=== PATIENT | female | born 1985 | race African-American/Black ===

== ENCOUNTER 2018-04-14 06:51 | Emergency (ER) | payer OTHER ==
[~2018-04-14] VITALS: Ht 160 cm; Wt 82.0 kg
[2018-04-14 07:57] LABS: HEMATOCRIT. 37.7 % (36.0-48.0); HEMOGLOBIN. 12.7 g/dL (12.0-16.0); MEAN CORPUSCULAR HEMOGLOBIN 30.4 pg (28.0-32.0); MEAN CORPUSCULAR VOLUME 90.3 fL (81.0-99.0); MEAN PLATELET VOLUME 8.3 fl (7.4-10.4); PLATELET 337 x1000/uL (130-400); RED BLOOD CELL COUNT 4.17 mill/uL (4.2-5.4); RED CELL DISTRIBUTION WIDTH 13.1 % (11.6-14.6)
[2018-04-14 08:01] LABS: COLOR URINE YELLOW (YELLOW); KETONES URINE NEGATIVE (NEGATIVE); LEUKOCYTE ESTERASE URINE NEGATIVE (NEGATIVE); NITRITE URINE NEGATIVE (NEGATIVE); OCCULT BLOOD URINE NEGATIVE (NEGATIVE); PH URINE 5.5 (4.5-8.0); PROTEIN URINE NEGATIVE (NEGATIVE); SPECIFIC GRAVITY URINE 1.027 (1.005-1.030)
[2018-04-14 08:02] LABS: CLARITY URINE HAZY (CLEAR)
[2018-04-14 08:03] LABS: CHLORIDE 106 mEq/L (98-107)
[2018-04-14 08:09] LABS: HCG SCREEN NEGATIVE
[2018-04-14 08:23] LABS: PLATELET ESTIMATE NORMAL
[2018-04-14 11:29] VITALS: BP 116/58
== END 2018-04-14 11:42 | disposition home or self-care (01) ==
LOC: ER 06:51
DX: R10.2 Pelvic and perineal pain (principal); D25.9 Leiomyoma of uterus, unspecified; J45.909 Unspecified asthma, uncomplicated; F17.200 Nicotine dependence, unspecified, uncomplicated
CPT/HCPCS: 36415; 74176; 76830; 76856; 81025; 84703; 87210; 99284

== ENCOUNTER 2018-06-03 20:30 | Emergency (ER) | payer OTHER ==
[~2018-06-03] VITALS: Ht 160 cm; Wt 85.0 kg
[2018-06-03 21:00] VITALS: BP 99/72
== END 2018-06-04 03:52 | disposition left against medical advice (07) ==
LOC: ER 20:30
DX: Z53.21 Procedure and treatment not carried out due to patient leaving prior to being seen by health care provider (principal)

== ENCOUNTER 2018-08-29 09:01 | Emergency (ER) | payer OTHER ==
[~2018-08-29] VITALS: Ht 160 cm; Wt 81.0 kg
[2018-08-29] MEDS ORDERED: IBUPROFEN 800MG TABLET PO ONE (09:45)
[2018-08-29 13:21] VITALS: BP 112/62
== END 2018-08-29 13:22 | disposition home or self-care (01) ==
LOC: ER 09:01
DX: S63.592A Other specified sprain of left wrist, initial encounter (principal); M25.462 Effusion, left knee; J45.909 Unspecified asthma, uncomplicated; W18.39XA Other fall on same level, initial encounter; Y93.89 Activity, other specified; Y92.89 Other specified places as the place of occurrence of the external cause; Y99.8 Other external cause status
CPT/HCPCS: 29125; 73110; 73562; 81025; 93971; 99284

== ENCOUNTER 2021-03-18 15:24 | Emergency (ER) | payer BC, OTHER ==
[~2021-03-18] VITALS: Ht 162.6 cm; Wt 80.0 kg
[2021-03-18] MEDS ORDERED: LIDOCAINE HCL/PF 1% 10 MG/ML 5ML VIAL INFIL ONE ×2 (15:30→15:45)
[2021-03-18] MEDS ORDERED: TETANUS, DIPHTHERIA, PERTUSSIS VAC/PF 0.5ML (>10YR OLD) IM ONE (15:30)
[2021-03-18] MEDS ORDERED: BACITRACIN ZINC OINT UDPKT TOP ONE (15:30)
[2021-03-18] MEDS ORDERED: IBUPROFEN 600MG TABLET PO ONE (15:30)
[2021-03-18] MEDS ORDERED: CETI-89 PO (15:33)
[2021-03-18] MEDS ORDERED: MONT4GRA2 PO (15:33)
[2021-03-18] MEDS ORDERED: ALBU4TAB6 PO (15:33)
[2021-03-18] MEDS ORDERED: BO1 TP (15:34)
[2021-03-18] MEDS ORDERED: IBUP-2029 MT (15:34)
[2021-03-18 15:47] VITALS: BP 123/92
[2021-03-18] MEDS ORDERED: LIDOCAINE HCL 1% 10 MG/ML 10ML VIAL INJ NR ×2 (16:09→16:11)
== END 2021-03-18 16:46 | disposition home or self-care (01) ==
LOC: ER 15:24
DX: S51.812A Laceration without foreign body of left forearm, initial encounter (principal); W25.XXXA Contact with sharp glass, initial encounter; Y93.89 Activity, other specified; Y92.89 Other specified places as the place of occurrence of the external cause
CPT/HCPCS: 12002; 90471; 90715; 99283; Z7610; J3490